=== PATIENT | female | born 1930 | race Caucasian/White ===

== ENCOUNTER 2017-01-13 23:56 | Inpatient (IN) | payer MEDICARE, OTHER ==
[~2017-01-13 23:56] MED LIST: ADULT LOW DOSE81 M1 PO; ALDACTONE25 M1 PO; AVALIDE 300-251 TAB PO; CALCIUM500 MG; CALCIUM600 M1 PO; CALCIUM600 MG PO; CO Q-10100 MG; CO Q-1075 MG PO; COUMADIN3 M1 PO; COUMADIN5 MG; COUMADIN5 MG PO; COZAAR100 MG PO; CYCLOBENZAPRINE5 M1 PO; GARLIC1 CAP; GARLIC1 CAP PO; GLUCOSAMINE1000 M1 PO; GLUCOSAMINE500 MG; GLUCOSAMINE500 MG PO; HYZAAR 100-12.51 TAB; LASIX20 MG PO; LASIX40 M1 PO; LEVOTHROID137 MCG PO; METFORMIN HCL500 PO; METOPROLOL SUCC25 M1 PO; METOPXL25 PO; METOPXL50; MULTIVITAMIN1 CAP; MULTIVITAMIN1 TAB PO; MULTIVITAMINS1 EAC6 PO; NORCO 5-325 TA1 EACH PO; OMEGA 31 CAP; OMEGA 31 CAP PO; OXYCODONE/APAP PO; PACERONE200 M1 PO; PRAVACHOL40 M1 PO; PRAVACHOL40 MG PO; PROPAFENONE HC150 MG PO; PROTONIX40 MG PO; SYNTHROID75 MCG; SYNTHROID75 MCG PO; SYNTHROID88 MC1 PO; TOPROL XL50 MG; TYLENOL325 MG PO; VITAMIN C; VITAMIN C1000 M1 PO; VITAMIN C1000 MG PO; [UNRECOGNIZED DRUG - CODE] PO; [UNRECOGNIZED DRUG - CODE] PO; [UNRECOGNIZED DRUG - REMARK] PO
[2017-01-14 01:13] LABS: BASO % 0.4 % (0-2); EOS % 0.3 % (0-7); HCT-HEMATOCRIT 30.6 % (34.0-49.0); HGB-HEMOGLOBIN 10.3 gm/dl (12.0-15.5); IMMATURE GRANULOCYTES ABSOLUTE 0.05 tho/cmm (0-0.03); IMMATURE GRANULOCYTES PERCENT 0.4 % (0-0.3); LYMPH % 14.8 % (20-45); LYMPH ABSOLUTE COUNT 1.7 tho/cmm (0.8-4.5); MCH (MEAN CORPUSCULAR HGB) 29.8 pg (28.0-32.0); MCHC MEAN CORPUSCULAR HGB CONC 33.7 % (32.0-36.0); MCV (MEAN CELL VOLUME) 88.4 fl (82.0-96.0); MEAN PLATELET VOLUME 10.6 cmc (9.4-12.4); MONO % 8.4 % (0-12); MONOCYTE ABSOLUTE COUNT 0.9 tho/cmm (0.0-1.2); NEUTROPHIL ABSOLUTE COUNT 8.5 tho/cmm (1.6-8.0); NEUTROPHIL-AUTOMATED 8.5 tho/cmm (1.6-8.0); NEUTROPHILS % 75.7 % (40-80); PLATELET COUNT 171 tho/cmm (150-450); RED BLOOD COUNT 3.46 mil/cmm (4.00-5.20); RED CELL DISTRIBUTION WIDTH 14.2 % (12.4-16.4); WHITE BLOOD COUNT 11.2 tho/cmm (4.0-10.0)
[2017-01-14 01:20] LABS: INR 2.4 INR (0.9-1.1); PROTHROMBIN TIME 29.2 SECONDS (9.0-13.6)
[2017-01-14 01:34] LABS: ALB/GLOB RATIO 0.8 (0.8-2.0); ALBUMIN 3.2 g/dl (3.5-5.0); ALKALINE PHOSPHATASE 71 U/L (33-138); ALT/SGPT 24 U/L (12-78); BILIRUBIN,TOTAL 0.5 mg/dl (0-1.5); BLOOD UREA NITROGEN 19 mg/dl (6-24); CALCIUM 8.2 mg/dl (8.5-10.5); CARBON DIOXIDE-VENOUS 22 mmol/L (22-32); CHLORIDE 95 mmol/l (96-110); CREATININE 0.76 mg/dl (0.50-1.10); GLUCOSE 163 mg/dL (70-110); LIPASE 282 U/L (73-393); SODIUM 126 mmol/L (135-145); eGFR VALUE FOR BLACK 82 mL/Min
[2017-01-14 01:36] LABS: ANION GAP 14 mmol/L (0-20); AST/SGOT 43 U/L (10-40); POTASSIUM 4.8 mmol/L (3.7-5.1)
[2017-01-14 02:18] LABS: URINE BILIRUBIN NEGATIVE (NEG); URINE BLOOD NEGATIVE (NEG); URINE GLUCOSE (UA) NEGATIVE (NEG); URINE KETONE MODERATE (NEG); URINE LEUKOCYTE ESTERASE NEGATIVE (NEG); URINE NITRITE NEGATIVE (NEG); URINE PROTEIN MODERATE (NEG); URINE SPECIFIC GRAVITY 1.025 (1.003-1.030)
[2017-01-14 02:19] LABS: URINE APPEARANCE CLEAR; URINE COLOR YELLOW
[2017-01-14 02:26] LABS: URINE BACTERIA 1+; URINE RBC 0 /[HPF] (0-5); URINE WBC 0 /[HPF] (0-5)
[2017-01-14] MEDS ORDERED: ZITHROMAX250 M1 PO (03:19)
[2017-01-14 13:23] LABS: INR 1.7 INR (0.9-1.1); PROTHROMBIN TIME 20.6 SECONDS (9.0-13.6)
--- NOTE | 2017-01-14 14:00 | NUR ---
NOTIFIED IMS PT LUNGS SOUNDS MORE COARSE/WHEEZES. LOOKED ON PT HOME MED LIST TAKES 60 MG PO LASIX DAILY. ORDER TO GIVE 40IV LASIX X1 NOW.
[2017-01-15 01:38] LABS: URINE BILIRUBIN NEGATIVE (NEG); URINE BLOOD LARGE (NEG); URINE GLUCOSE (UA) NEGATIVE (NEG); URINE KETONE MODERATE (NEG); URINE LEUKOCYTE ESTERASE POSITIVE (NEG); URINE NITRITE NEGATIVE (NEG); URINE PROTEIN LARGE (NEG)
[2017-01-15 01:39] LABS: URINE APPEARANCE CLOUDY; URINE COLOR RED
[2017-01-15 01:53] LABS: URINE RBC FULL FIELD /[HPF] (0-5)
[2017-01-15 06:06] LABS: BASO % 0.1 % (0-2); EOS % 0.1 % (0-7); HCT-HEMATOCRIT 27.5 % (34.0-49.0); HGB-HEMOGLOBIN 9.2 gm/dl (12.0-15.5); IMMATURE GRANULOCYTES ABSOLUTE 0.03 tho/cmm (0-0.03); IMMATURE GRANULOCYTES PERCENT 0.4 % (0-0.3); LYMPH ABSOLUTE COUNT 1.9 tho/cmm (0.8-4.5); MCH (MEAN CORPUSCULAR HGB) 29.4 pg (28.0-32.0); MCHC MEAN CORPUSCULAR HGB CONC 33.5 % (32.0-36.0); MCV (MEAN CELL VOLUME) 87.9 fl (82.0-96.0); MEAN PLATELET VOLUME 10.5 cmc (9.4-12.4); MONO % 12.7 % (0-12); MONOCYTE ABSOLUTE COUNT 0.9 tho/cmm (0.0-1.2); NEUTROPHIL ABSOLUTE COUNT 4.2 tho/cmm (1.6-8.0); NEUTROPHIL-AUTOMATED 4.2 tho/cmm (1.6-8.0); NEUTROPHILS % 59.7 % (40-80); PLATELET COUNT 147 tho/cmm (150-450); RED BLOOD COUNT 3.13 mil/cmm (4.00-5.20); RED CELL DISTRIBUTION WIDTH 14.4 % (12.4-16.4)
[2017-01-15 06:10] LABS: INR 1.4 INR (0.9-1.1)
[2017-01-15 06:13] LABS: PARTIAL THROMBOPLASTIN TIME 31 SECONDS (22-38)
[2017-01-15 06:21] LABS: ANION GAP 12 mmol/L (0-20); BLOOD UREA NITROGEN 15 mg/dl (6-24); CALCIUM 8.3 mg/dl (8.5-10.5); CARBON DIOXIDE-VENOUS 26 mmol/L (22-32); CHLORIDE 92 mmol/l (96-110); CREATININE 0.67 mg/dl (0.50-1.10); GLUCOSE 110 mg/dL (70-110); MAGNESIUM 1.9 mg/dl (1.3-2.6); SODIUM 127 mmol/L (135-145); eGFR VALUE FOR BLACK >90 mL/Min
[2017-01-15 06:25] LABS: TSH-THYROID STIMULATING HORM. 2.08 uIU/ml (0.40-3.80)
[2017-01-15 06:26] LABS: PROTHROMBIN TIME 16.3 SECONDS (9.0-13.6)
[2017-01-15 06:29] LABS: POTASSIUM 3.4 mmol/L (3.7-5.1)
[2017-01-15 13:09] LABS: HCT-HEMATOCRIT 29.7 % (34.0-49.0); HGB-HEMOGLOBIN 10.2 gm/dl (12.0-15.5); MCV (MEAN CELL VOLUME) 86.8 fl (82.0-96.0); RED CELL DISTRIBUTION WIDTH 14.3 % (12.4-16.4)
[2017-01-16 01:11] LABS: HCT-HEMATOCRIT 27.2 % (34.0-49.0); HGB-HEMOGLOBIN 9.2 gm/dl (12.0-15.5); MCV (MEAN CELL VOLUME) 87.5 fl (82.0-96.0); RED CELL DISTRIBUTION WIDTH 14.6 % (12.4-16.4)
[2017-01-16 05:40] LABS: BASO % 0.3 % (0-2); EOS % 0.9 % (0-7); EOSINOPHIL ABSOLUTE COUNT 0.1 tho/cmm (0.0-0.7); HCT-HEMATOCRIT 28.4 % (34.0-49.0); HGB-HEMOGLOBIN 9.4 gm/dl (12.0-15.5); IMMATURE GRANULOCYTES ABSOLUTE 0.04 tho/cmm (0-0.03); IMMATURE GRANULOCYTES PERCENT 0.6 % (0-0.3); LYMPH % 28.1 % (20-45); MCHC MEAN CORPUSCULAR HGB CONC 33.1 % (32.0-36.0); MCV (MEAN CELL VOLUME) 87.7 fl (82.0-96.0); MEAN PLATELET VOLUME 10.5 cmc (9.4-12.4); MONO % 12.9 % (0-12); MONOCYTE ABSOLUTE COUNT 0.9 tho/cmm (0.0-1.2); NEUTROPHILS % 57.2 % (40-80); PLATELET COUNT 154 tho/cmm (150-450); RED BLOOD COUNT 3.24 mil/cmm (4.00-5.20); RED CELL DISTRIBUTION WIDTH 14.7 % (12.4-16.4)
[2017-01-16 05:51] LABS: ALB/GLOB RATIO 0.8 (0.8-2.0); ALBUMIN 3.1 g/dl (3.5-5.0); ALKALINE PHOSPHATASE 71 U/L (33-138); ALT/SGPT 30 U/L (12-78); ANION GAP 12 mmol/L (0-20); AST/SGOT 42 U/L (10-40); BILIRUBIN,TOTAL 0.4 mg/dl (0-1.5); BLOOD UREA NITROGEN 17 mg/dl (6-24); CALCIUM 8.1 mg/dl (8.5-10.5); CARBON DIOXIDE-VENOUS 27 mmol/L (22-32); CHLORIDE 91 mmol/l (96-110); CREATININE 0.81 mg/dl (0.50-1.10); GLUCOSE 143 mg/dL (70-110); POTASSIUM 3.2 mmol/L (3.7-5.1); SODIUM 127 mmol/L (135-145); eGFR VALUE FOR BLACK 76 mL/Min
[2017-01-16] MEDS ORDERED: ASPIRIN EC81 MG PO (10:54)
[2017-01-17 06:07] LABS: INR 1.2 INR (0.9-1.1); PROTHROMBIN TIME 13.6 SECONDS (9.0-13.6)
[2017-01-17 06:12] LABS: ANION GAP 12 mmol/L (0-20); BLOOD UREA NITROGEN 16 mg/dl (6-24); CALCIUM 8.8 mg/dl (8.5-10.5); CARBON DIOXIDE-VENOUS 30 mmol/L (22-32); CHLORIDE 94 mmol/l (96-110); CREATININE 0.74 mg/dl (0.50-1.10); GLUCOSE 113 mg/dL (70-110); SODIUM 133 mmol/L (135-145); eGFR VALUE FOR BLACK 85 mL/Min
[2017-01-18 05:09] LABS: INR 1.2 INR (0.9-1.1); PROTHROMBIN TIME 13.7 SECONDS (9.0-13.6)
[2017-01-18 05:24] LABS: ANION GAP 12 mmol/L (0-20); BLOOD UREA NITROGEN 17 mg/dl (6-24); C-REACTIVE PROTEIN 1.7 mg/dl (0-0.9); CALCIUM 9.1 mg/dl (8.5-10.5); CARBON DIOXIDE-VENOUS 28 mmol/L (22-32); CHLORIDE 97 mmol/l (96-110); CREATININE 0.77 mg/dl (0.50-1.10); GLUCOSE 122 mg/dL (70-110); POTASSIUM 3.6 mmol/L (3.7-5.1); SODIUM 133 mmol/L (135-145); eGFR VALUE FOR BLACK 81 mL/Min
[2017-01-18 05:26] LABS: HCT-HEMATOCRIT 31.6 % (34.0-49.0); HGB-HEMOGLOBIN 10.6 gm/dl (12.0-15.5); MCH (MEAN CORPUSCULAR HGB) 29.7 pg (28.0-32.0); MCHC MEAN CORPUSCULAR HGB CONC 33.5 % (32.0-36.0); MCV (MEAN CELL VOLUME) 88.5 fl (82.0-96.0); MEAN PLATELET VOLUME 10.9 cmc (9.4-12.4); NEUTROPHIL-AUTOMATED 7.6 tho/cmm (1.6-8.0); PLATELET COUNT 226 tho/cmm (150-450); RED BLOOD COUNT 3.57 mil/cmm (4.00-5.20); RED CELL DISTRIBUTION WIDTH 14.9 % (12.4-16.4)
[2017-01-18 05:36] LABS: WHITE BLOOD COUNT 11.8 tho/cmm (4.0-10.0)
[2017-01-18 07:44] LABS: BAND % 5 % (0-20); BAND ABSOLUTE COUNT 0.6 tho/cmm (0-2.0); EOSINOPHIL % 3 % (0-7)
[2017-01-18 07:45] LABS: WBC MORPHOLOGY VARIANT LYMPHS
[2017-01-18] MEDS ORDERED: PROTONIX40 M2 PO (13:13)
== END 2017-01-18 15:24 | DRG 377 ==
LOC: EDMED 23:56 → EMR2 01-14 07:41 → PCUA 01-14 07:45
PROVIDERS: Emergency Medicine; Family Medicine; Internal Medicine; Internal Medicine Gastroenterology; Physician Assistant; ADMIT Hospitalist
PROC: 0DB68ZX Excision of Stomach, Via Natural or Artificial Opening Endoscopic, Diagnostic (ICD-10-PCS; principal; 2017-01-14)
PROC: 30233N1 Transfusion of Nonautologous Red Blood Cells into Peripheral Vein, Percutaneous Approach (ICD-10-PCS; 2017-01-14)
DX: K25.0 Acute gastric ulcer with hemorrhage (principal); J96.20 Acute and chronic respiratory failure, unspecified whether with hypoxia or hypercapnia; D68.9 Coagulation defect, unspecified; E87.1 Hypo-osmolality and hyponatremia; I48.0 Paroxysmal atrial fibrillation; I27.2 Other secondary pulmonary hypertension; D62 Acute posthemorrhagic anemia; I48.2 Chronic atrial fibrillation; Z79.01 Long term (current) use of anticoagulants; J40 Bronchitis, not specified as acute or chronic; E03.9 Hypothyroidism, unspecified; E78.5 Hyperlipidemia, unspecified; I10 Essential (primary) hypertension; Z95.0 Presence of cardiac pacemaker; Z95.4 Presence of other heart-valve replacement; Z90.710 Acquired absence of both cervix and uterus; Z66 Do not resuscitate; Z95.2 Presence of prosthetic heart valve; I25.10 Atherosclerotic heart disease of native coronary artery without angina pectoris
CPT/HCPCS: C9113; J0456; J1815; J1940; J3430; J7030; J7050; P9017; Q9967

== ENCOUNTER 2017-03-15 20:41 | Inpatient (IN) | payer MEDICARE, OTHER ==
[~2017-03-15 20:41] MED LIST changes: +ASPIRIN EC81 MG PO; +PROTONIX40 M2 PO; +ZITHROMAX250 M1 PO
[2017-03-15] MEDS ORDERED: CARTIA XT180 M1 PO (21:05)
[2017-03-15 21:48] LABS: BASO % 0.2 % (0-2); EOS % 0.2 % (0-7); HCT-HEMATOCRIT 32.2 % (34.0-49.0); HGB-HEMOGLOBIN 10.5 gm/dl (12.0-15.5); IMMATURE GRANULOCYTES ABSOLUTE 0.02 tho/cmm (0-0.03); IMMATURE GRANULOCYTES PERCENT 0.2 % (0-0.3); LYMPH ABSOLUTE COUNT 1.1 tho/cmm (0.8-4.5); MCH (MEAN CORPUSCULAR HGB) 26.4 pg (28.0-32.0); MCHC MEAN CORPUSCULAR HGB CONC 32.6 % (32.0-36.0); MCV (MEAN CELL VOLUME) 81.1 fl (82.0-96.0); MEAN PLATELET VOLUME 9.8 cmc (9.4-12.4); MONO % 12.5 % (0-12); NEUTROPHIL ABSOLUTE COUNT 5.9 tho/cmm (1.6-8.0); NEUTROPHIL-AUTOMATED 5.9 tho/cmm (1.6-8.0); NEUTROPHILS % 72.9 % (40-80); PLATELET COUNT 193 tho/cmm (150-450); RED BLOOD COUNT 3.97 mil/cmm (4.00-5.20); RED CELL DISTRIBUTION WIDTH 15.6 % (12.4-16.4); WHITE BLOOD COUNT 8.1 tho/cmm (4.0-10.0)
[2017-03-15 21:53] LABS: INR 2.5 INR (0.9-1.1); PROTHROMBIN TIME 29.5 SECONDS (9.0-13.6)
[2017-03-15 22:12] LABS: ALB/GLOB RATIO 0.9 (0.8-2.0); ALBUMIN 3.6 g/dl (3.5-5.0); ALKALINE PHOSPHATASE 133 U/L (33-138); ALT/SGPT 23 U/L (12-78); ANION GAP 15 mmol/L (0-20); AST/SGOT 27 U/L (10-40); BILIRUBIN,TOTAL 0.7 mg/dl (0-1.5); BLOOD UREA NITROGEN 26 mg/dl (6-24); CALCIUM 8.9 mg/dl (8.5-10.5); CARBON DIOXIDE-VENOUS 24 mmol/L (22-32); CHLORIDE 91 mmol/l (96-110); CREATINE PHOSPHOKINASE (CPK) 80 U/L (21-215); CREATININE 0.98 mg/dl (0.50-1.10); GLUCOSE 131 mg/dL (70-110); MAGNESIUM 2.4 mg/dl (1.8-2.6); POTASSIUM 3.7 mmol/L (3.7-5.1); SODIUM 126 mmol/L (135-145); eGFR VALUE FOR BLACK 61 mL/Min
[2017-03-15 22:16] LABS: TSH-THYROID STIMULATING HORM. 5.11 uIU/ml (0.40-3.80)
[2017-03-15 22:28] LABS: URINE BILIRUBIN NEGATIVE (NEG); URINE BLOOD NEGATIVE (NEG); URINE GLUCOSE (UA) NEGATIVE (NEG); URINE KETONE NEGATIVE (NEG); URINE LEUKOCYTE ESTERASE NEGATIVE (NEG); URINE NITRITE NEGATIVE (NEG); URINE PROTEIN MODERATE (NEG); URINE SPECIFIC GRAVITY 1.015 (1.003-1.030)
[2017-03-15 22:32] LABS: URINE APPEARANCE CLEAR; URINE COLOR YELLOW
[2017-03-16 00:54] LABS: URINE SODIUM-RANDOM 11 mmol/L (20-110)
[2017-03-16 02:34] LABS: URINE BILIRUBIN NEGATIVE (NEG); URINE BLOOD LARGE (NEG); URINE GLUCOSE (UA) NEGATIVE (NEG); URINE KETONE NEGATIVE (NEG); URINE LEUKOCYTE ESTERASE NEGATIVE (NEG); URINE NITRITE NEGATIVE (NEG); URINE PROTEIN NEGATIVE (NEG)
[2017-03-16 02:36] LABS: URINE APPEARANCE HZY; URINE COLOR YELLOW
[2017-03-16 02:46] LABS: URINE SODIUM-RANDOM 83 mmol/L (20-110)
[2017-03-16 03:11] LABS: URINE WBC 0 /[HPF] (0-5)
[2017-03-16 03:12] LABS: URINE BACTERIA 1+; URINE EPITHELIAL CELLS RARE /[HPF] (0-10)
[2017-03-16 07:36] LABS: INR 2.2 INR (0.9-1.1); PROTHROMBIN TIME 25.9 SECONDS (9.0-13.6)
[2017-03-16 07:46] LABS: BLOOD UREA NITROGEN 23 mg/dl (6-24); CARBON DIOXIDE-VENOUS 26 mmol/L (22-32); CHLORIDE 97 mmol/l (96-110); CREATININE 0.92 mg/dl (0.50-1.10); GLUCOSE 115 mg/dL (70-110); SODIUM 135 mmol/L (135-145); eGFR VALUE FOR BLACK 65 mL/Min
[2017-03-16 07:50] LABS: ANION GAP 15 mmol/L (0-20); POTASSIUM 3.3 mmol/L (3.7-5.1)
[2017-03-16] MEDS ORDERED: CYCLOBENZAPRINE5 M1 PO (10:35)
[2017-03-16] MEDS ORDERED: ANALGESIC BALM30 G2 TOP (10:36)
[2017-03-17 05:40] LABS: INR 2.3 INR (0.9-1.1); PROTHROMBIN TIME 27.8 SECONDS (9.0-13.6)
[2017-03-17 10:45] LABS: HGB-HEMOGLOBIN 10.7 gm/dl (12.0-15.5); PLATELET COUNT 206 tho/cmm (150-450)
[2017-03-17 10:47] LABS: INR 2.1 INR (0.9-1.1)
[2017-03-17 10:53] LABS: CREATININE 1.09 mg/dl (0.50-1.10); eGFR VALUE FOR BLACK 53 mL/Min
[2017-03-18 05:14] LABS: BASO % 0.3 % (0-2); EOS % 1.7 % (0-7); EOSINOPHIL ABSOLUTE COUNT 0.1 tho/cmm (0.0-0.7); HGB-HEMOGLOBIN 9.7 gm/dl (12.0-15.5); IMMATURE GRANULOCYTES ABSOLUTE 0.01 tho/cmm (0-0.03); IMMATURE GRANULOCYTES PERCENT 0.2 % (0-0.3); LYMPH % 23.6 % (20-45); LYMPH ABSOLUTE COUNT 1.5 tho/cmm (0.8-4.5); MCH (MEAN CORPUSCULAR HGB) 25.9 pg (28.0-32.0); MCHC MEAN CORPUSCULAR HGB CONC 31.3 % (32.0-36.0); MCV (MEAN CELL VOLUME) 82.9 fl (82.0-96.0); MEAN PLATELET VOLUME 9.8 cmc (9.4-12.4); MONO % 14.2 % (0-12); MONOCYTE ABSOLUTE COUNT 0.9 tho/cmm (0.0-1.2); NEUTROPHIL ABSOLUTE COUNT 3.9 tho/cmm (1.6-8.0); NEUTROPHIL-AUTOMATED 3.9 tho/cmm (1.6-8.0); PLATELET COUNT 192 tho/cmm (150-450); RED BLOOD COUNT 3.74 mil/cmm (4.00-5.20); WHITE BLOOD COUNT 6.4 tho/cmm (4.0-10.0)
[2017-03-18 05:16] LABS: INR 2.4 INR (0.9-1.1); PROTHROMBIN TIME 28.1 SECONDS (9.0-13.6)
[2017-03-18 05:22] LABS: ANION GAP 13 mmol/L (0-20); BLOOD UREA NITROGEN 27 mg/dl (6-24); CALCIUM 8.5 mg/dl (8.5-10.5); CARBON DIOXIDE-VENOUS 28 mmol/L (22-32); CHLORIDE 99 mmol/l (96-110); CREATININE 0.99 mg/dl (0.50-1.10); GLUCOSE 134 mg/dL (70-110); MAGNESIUM 2.3 mg/dl (1.8-2.6); SODIUM 135 mmol/L (135-145); eGFR VALUE FOR BLACK 60 mL/Min
[2017-03-18 05:42] LABS: POTASSIUM 4.5 mmol/L (3.7-5.1)
[2017-03-19 06:23] LABS: BASO % 0.3 % (0-2); EOS % 1.5 % (0-7); EOSINOPHIL ABSOLUTE COUNT 0.1 tho/cmm (0.0-0.7); HCT-HEMATOCRIT 30.5 % (34.0-49.0); HGB-HEMOGLOBIN 9.7 gm/dl (12.0-15.5); IMMATURE GRANULOCYTES ABSOLUTE 0.02 tho/cmm (0-0.03); IMMATURE GRANULOCYTES PERCENT 0.3 % (0-0.3); LYMPH % 21.8 % (20-45); LYMPH ABSOLUTE COUNT 1.6 tho/cmm (0.8-4.5); MCH (MEAN CORPUSCULAR HGB) 26.3 pg (28.0-32.0); MCHC MEAN CORPUSCULAR HGB CONC 31.8 % (32.0-36.0); MCV (MEAN CELL VOLUME) 82.7 fl (82.0-96.0); MEAN PLATELET VOLUME 9.8 cmc (9.4-12.4); MONOCYTE ABSOLUTE COUNT 1.1 tho/cmm (0.0-1.2); NEUTROPHIL ABSOLUTE COUNT 4.5 tho/cmm (1.6-8.0); NEUTROPHIL-AUTOMATED 4.5 tho/cmm (1.6-8.0); NEUTROPHILS % 61.1 % (40-80); PLATELET COUNT 191 tho/cmm (150-450); RED BLOOD COUNT 3.69 mil/cmm (4.00-5.20); RED CELL DISTRIBUTION WIDTH 16.1 % (12.4-16.4); WHITE BLOOD COUNT 7.4 tho/cmm (4.0-10.0)
[2017-03-19 06:32] LABS: INR 2.5 INR (0.9-1.1); PROTHROMBIN TIME 29.4 SECONDS (9.0-13.6)
== END 2017-03-19 16:16 | DRG 641 ==
LOC: EDMED 20:41 → EMR2 23:58 → 5WF 03-16 01:45
PROVIDERS: Emergency Medicine; Internal Medicine; Internal Medicine Cardiovascular Disease; Registered Nurse; ADMIT Hospitalist
DX: E87.1 Hypo-osmolality and hyponatremia (principal); E11.65 Type 2 diabetes mellitus with hyperglycemia; M48.56XA Collapsed vertebra, not elsewhere classified, lumbar region, initial encounter for fracture; R60.0 Localized edema; I48.2 Chronic atrial fibrillation; E03.9 Hypothyroidism, unspecified; D64.9 Anemia, unspecified; I10 Essential (primary) hypertension; Z88.0 Allergy status to penicillin; Z88.2 Allergy status to sulfonamides; Z88.4 Allergy status to anesthetic agent; Z88.8 Allergy status to other drugs, medicaments and biological substances; Z79.82 Long term (current) use of aspirin; Z79.01 Long term (current) use of anticoagulants; Z79.899 Other long term (current) drug therapy; Z95.0 Presence of cardiac pacemaker; Z95.2 Presence of prosthetic heart valve
CPT/HCPCS: J1815; J1940; J2270

== ENCOUNTER 2017-04-01 01:49 | Inpatient (IN) | payer MEDICARE, OTHER ==
[~2017-04-01 01:49] MED LIST changes: +ANALGESIC BALM30 G2 TOP; +CARTIA XT180 M1 PO
[2017-04-01 02:44] LABS: BASO % 0.3 % (0-2); EOS % 1.3 % (0-7); EOSINOPHIL ABSOLUTE COUNT 0.1 tho/cmm (0.0-0.7); HCT-HEMATOCRIT 32.4 % (34.0-49.0); HGB-HEMOGLOBIN 10.1 gm/dl (12.0-15.5); IMMATURE GRANULOCYTES ABSOLUTE 0.02 tho/cmm (0-0.03); IMMATURE GRANULOCYTES PERCENT 0.3 % (0-0.3); LYMPH % 23.7 % (20-45); LYMPH ABSOLUTE COUNT 1.8 tho/cmm (0.8-4.5); MCH (MEAN CORPUSCULAR HGB) 25.8 pg (28.0-32.0); MCHC MEAN CORPUSCULAR HGB CONC 31.2 % (32.0-36.0); MCV (MEAN CELL VOLUME) 82.7 fl (82.0-96.0); MEAN PLATELET VOLUME 10.1 cmc (9.4-12.4); MONO % 11.7 % (0-12); MONOCYTE ABSOLUTE COUNT 0.9 tho/cmm (0.0-1.2); NEUTROPHIL ABSOLUTE COUNT 4.9 tho/cmm (1.6-8.0); NEUTROPHIL-AUTOMATED 4.9 tho/cmm (1.6-8.0); NEUTROPHILS % 62.7 % (40-80); PLATELET COUNT 217 tho/cmm (150-450); RED BLOOD COUNT 3.92 mil/cmm (4.00-5.20); RED CELL DISTRIBUTION WIDTH 17.4 % (12.4-16.4); WHITE BLOOD COUNT 7.8 tho/cmm (4.0-10.0)
[2017-04-01 02:48] LABS: INR 2.4 INR (0.9-1.1); PROTHROMBIN TIME 28.3 SECONDS (9.0-13.6)
[2017-04-01 03:00] LABS: ALB/GLOB RATIO 0.7 (0.8-2.0); ALBUMIN 3.1 g/dl (3.5-5.0); ALKALINE PHOSPHATASE 171 U/L (33-138); ALT/SGPT 18 U/L (12-78); BILIRUBIN,TOTAL 0.3 mg/dl (0-1.5); BLOOD UREA NITROGEN 30 mg/dl (6-24); CALCIUM 9.2 mg/dl (8.5-10.5); CARBON DIOXIDE-VENOUS 27 mmol/L (22-32); CHLORIDE 100 mmol/l (96-110); CREATININE 1.06 mg/dl (0.50-1.10); GLUCOSE 128 mg/dL (70-110); SODIUM 136 mmol/L (135-145); eGFR VALUE FOR BLACK 55 mL/Min
[2017-04-01 03:02] LABS: ANION GAP 14 mmol/L (0-20)
[2017-04-01 03:03] LABS: AST/SGOT 31 U/L (10-40); POTASSIUM 4.5 mmol/L (3.7-5.1)
[2017-04-01 03:32] LABS: PROCALCITONIN 0.09 ng/ml (0.05-0.09)
[2017-04-01 03:41] LABS: URINE APPEARANCE HAZY; URINE BILIRUBIN NEGATIVE (NEG); URINE BLOOD SMALL (NEG); URINE COLOR YELLOW; URINE GLUCOSE (UA) NEGATIVE (NEG); URINE KETONE NEGATIVE (NEG); URINE LEUKOCYTE ESTERASE NEGATIVE (NEG); URINE NITRITE NEGATIVE (NEG); URINE PROTEIN MODERATE (NEG)
[2017-04-01 03:51] LABS: URINE RBC 0-2 /[HPF] (0-5); URINE WBC 0 /[HPF] (0-5)
[2017-04-01 03:52] LABS: URINE AMORPHOUS 1+; URINE BACTERIA 1+; URINE EPITHELIAL CELLS 0-3 RENAL /[HPF] (0-10)
[2017-04-01] MEDS ORDERED: IROSPAN 24/6 T1 EACH PO (04:07)
[2017-04-01] MEDS ORDERED: LIDODERM1 EACH TOP (04:08)
[2017-04-01] MEDS ORDERED: MIRALAX17 G2 PO (04:09)
[2017-04-01] MEDS ORDERED: TOPROL XL25 M1 PO (04:09)
[2017-04-01] MEDS ORDERED: COLACE100 M1 PO (04:10)
[2017-04-01] MEDS ORDERED: CYCLOBENZAPRINE5 M1 PO (04:11)
[2017-04-01] MEDS ORDERED: NORCO 5-325 TA1 EACH PO (04:11)
[2017-04-01] MEDS ORDERED: TYLENOL325 M2 PO (04:12)
[2017-04-01] MEDS ORDERED: MILK OF MAGNESIA PO (04:13)
[2017-04-01] MEDS ORDERED: ICY HOT CREAM35.4 GM TP (04:13)
[2017-04-01 06:08] LABS: ABG CO2 ARTERIAL 27 mmol/L (21-27); ARTERIAL BLD GAS O2 SATURATION 95 % (95-98); ARTERIAL BLOOD GAS PCO2 36 mmHg (32-45); ARTERIAL PO2 82 mmHg (70-100); BICARBONATE 26 mmol/L (21-28); BLOOD GAS BASE EXCESS 3 mM/L (-/+3); PH 7.47 Units (7.35-7.45)
[2017-04-02 05:31] LABS: ANION GAP 11 mmol/L (0-20); BLOOD UREA NITROGEN 28 mg/dl (6-24); CALCIUM 8.6 mg/dl (8.5-10.5); CARBON DIOXIDE-VENOUS 29 mmol/L (22-32); CHLORIDE 99 mmol/l (96-110); CREATININE 1.03 mg/dl (0.50-1.10); GLUCOSE 123 mg/dL (70-110); POTASSIUM 3.7 mmol/L (3.7-5.1); SODIUM 135 mmol/L (135-145); eGFR VALUE FOR BLACK 57 mL/Min
[2017-04-02 10:01] LABS: PROTHROMBIN TIME 23.6 SECONDS (9.0-13.6)
[2017-04-03 05:22] LABS: INR 1.8 INR (0.9-1.1); PROTHROMBIN TIME 21.3 SECONDS (9.0-13.6)
[2017-04-03 05:33] LABS: ANION GAP 14 mmol/L (0-20); BLOOD UREA NITROGEN 26 mg/dl (6-24); CALCIUM 8.8 mg/dl (8.5-10.5); CARBON DIOXIDE-VENOUS 27 mmol/L (22-32); CHLORIDE 100 mmol/l (96-110); CREATININE 1.03 mg/dl (0.50-1.10); GLUCOSE 118 mg/dL (70-110); POTASSIUM 3.8 mmol/L (3.7-5.1); SODIUM 137 mmol/L (135-145); eGFR VALUE FOR BLACK 57 mL/Min
[2017-04-04 06:03] LABS: ANION GAP 11 mmol/L (0-20); BLOOD UREA NITROGEN 22 mg/dl (6-24); CALCIUM 8.9 mg/dl (8.5-10.5); CARBON DIOXIDE-VENOUS 29 mmol/L (22-32); CHLORIDE 99 mmol/l (96-110); CREATININE 1.04 mg/dl (0.50-1.10); GLUCOSE 112 mg/dL (70-110); POTASSIUM 3.9 mmol/L (3.7-5.1); SODIUM 135 mmol/L (135-145); eGFR VALUE FOR BLACK 56 mL/Min
[2017-04-05 05:26] LABS: INR 1.4 INR (0.9-1.1)
[2017-04-05 05:31] LABS: PROTHROMBIN TIME 16.3 SECONDS (9.0-13.6)
[2017-04-05 05:36] LABS: ANION GAP 12 mmol/L (0-20); BLOOD UREA NITROGEN 23 mg/dl (6-24); CALCIUM 8.7 mg/dl (8.5-10.5); CARBON DIOXIDE-VENOUS 29 mmol/L (22-32); CHLORIDE 97 mmol/l (96-110); CREATININE 1.14 mg/dl (0.50-1.10); GLUCOSE 129 mg/dL (70-110); POTASSIUM 3.5 mmol/L (3.7-5.1); SODIUM 134 mmol/L (135-145); eGFR VALUE FOR BLACK 50 mL/Min
[2017-04-06 04:42] LABS: INR 1.3 INR (0.9-1.1); PROTHROMBIN TIME 15.8 SECONDS (9.0-13.6)
[2017-04-06 04:51] LABS: ANION GAP 13 mmol/L (0-20); BLOOD UREA NITROGEN 24 mg/dl (6-24); CARBON DIOXIDE-VENOUS 27 mmol/L (22-32); CHLORIDE 98 mmol/l (96-110); CREATININE 1.18 mg/dl (0.50-1.10); GLUCOSE 117 mg/dL (70-110); POTASSIUM 3.9 mmol/L (3.7-5.1); SODIUM 134 mmol/L (135-145); eGFR VALUE FOR BLACK 48 mL/Min
[2017-04-06] MEDS ORDERED: DEMADEX20 M1 PO (11:20)
[2017-04-06] MEDS ORDERED: GLUCOPHAGE500 M3 PO (11:20)
== END 2017-04-06 12:45 | DRG 291 ==
LOC: EDMED 01:49 → EMR2 05:58 → PCUA 08:05
PROVIDERS: Emergency Medicine; Hospitalist; Internal Medicine; Registered Nurse; ADMIT Hospitalist
DX: I13.0 Hypertensive heart and chronic kidney disease with heart failure and stage 1 through stage 4 chronic kidney disease, or unspecified chronic kidney disease (principal); I50.33 Acute on chronic diastolic (congestive) heart failure; Z51.5 Encounter for palliative care; E11.22 Type 2 diabetes mellitus with diabetic chronic kidney disease; E11.65 Type 2 diabetes mellitus with hyperglycemia; E87.1 Hypo-osmolality and hyponatremia; I48.1 Persistent atrial fibrillation; I27.2 Other secondary pulmonary hypertension; M17.11 Unilateral primary osteoarthritis, right knee; N18.2 Chronic kidney disease, stage 2 (mild); I25.10 Atherosclerotic heart disease of native coronary artery without angina pectoris; E03.9 Hypothyroidism, unspecified; I08.1 Rheumatic disorders of both mitral and tricuspid valves; Z88.2 Allergy status to sulfonamides; Z88.0 Allergy status to penicillin; Z95.2 Presence of prosthetic heart valve; Z95.0 Presence of cardiac pacemaker; Z88.8 Allergy status to other drugs, medicaments and biological substances; Z79.01 Long term (current) use of anticoagulants; Z79.82 Long term (current) use of aspirin; Z90.710 Acquired absence of both cervix and uterus; Z90.722 Acquired absence of ovaries, bilateral; Z95.5 Presence of coronary angioplasty implant and graft; Z79.4 Long term (current) use of insulin
CPT/HCPCS: C8929; J1815; J1940; J3370; J7030; P9612